=== PATIENT | male | born 1935 | race Caucasian/White ===

== ENCOUNTER 2016-08-21 23:33 | Emergency (ER) | payer MEDICARE ==
[~2016-08-21] VITALS: Ht 175.3 cm; Wt 73.4 kg
[2016-08-22 00:39] LABS: BLOOD UREA NITROGEN 26 mg/dL (7-18)
[2016-08-22 01:34] VITALS: BP 113/64
== END 2016-08-22 01:36 | disposition home or self-care (01) ==
LOC: ED 08-22 01:23
DX: R42 Dizziness and giddiness (principal); I48.91 Unspecified atrial fibrillation; Z79.01 Long term (current) use of anticoagulants
CPT/HCPCS: 36415; 80048; 82040; 85025; 85610; 93005; 99285

== ENCOUNTER 2019-07-27 14:13 | Outpatient (CLI) | payer MEDICARE | END 2019-07-27 23:59 | disposition home or self-care (01) | LOC: CFH 14:13 → RAD 23:59 | PROVIDERS: ATTEND Surgery | DX: C34.11 Malignant neoplasm of upper lobe, right bronchus or lung (principal); J44.9 Chronic obstructive pulmonary disease, unspecified; J18.9 Pneumonia, unspecified organism | CPT/HCPCS: 71046; 88112; 88305 ==

== ENCOUNTER → 2019-11-04 | Outpatient (CLI) | payer MEDICARE | END | disposition home or self-care (01) | LOC: CFH 13:39 | PROVIDERS: ATTEND Internal Medicine | DX: J18.9 Pneumonia, unspecified organism (principal); I25.10 Atherosclerotic heart disease of native coronary artery without angina pectoris | CPT/HCPCS: 71250 ==

== ENCOUNTER 2020-05-27 13:13 | Outpatient (CLI) | payer MEDICARE ==
[2020-05-27] MEDS ORDERED: CHOL10003 PO (14:32)
[2020-05-27] MEDS ORDERED: TAMS-11 PO (14:32)
[2020-05-27] MEDS ORDERED: WARF4TAB65 PO (14:32)
[2020-05-27] MEDS ORDERED: WARF-36 PO (14:32)
[2020-05-27] MEDS ORDERED: GLUC500T11 PO (14:32)
[2020-05-27 14:49] LABS: BASOPHILS % (AUTO) 0 % (0-1); EOSINOPHILS % (AUTO) 2 % (1-7); LYMPHOCYTES % (AUTO) 21 % (22-44); MEAN CORPUSCULAR HEMOGLOBIN 31.8 pg (27.5-34.5); MEAN CORPUSCULAR HGB CONC 33.9 g/dL (33.2-36.2); MEAN PLATELET VOLUME 7.5 fL (7.4-10.4); MONOCYTES % (AUTO) 10 % (2-9); NEUTROPHILS % (AUTO) 67 % (42-75); PLATELET COUNT 203 x10^3/uL (130-400); RED BLOOD COUNT 4.75 x10^6/uL (4.38-5.82); RED CELL DISTRIBUTION WIDTH 13.8 % (9.4-14.8)
[2020-05-27 14:56] LABS: MD NO
[2020-05-27 15:00] LABS: ALANINE AMINOTRANSFERASE 33 U/L (12-78); ALBUMIN 3.8 g/dL (3.4-5.0); ANION GAP 4 mmol/L (5-15); CALCIUM 8.8 mg/dL (8.5-10.1); CHLORIDE 103 mmol/L (98-107); CREATININE 0.75 mg/dL (0.7-1.3)
[2020-05-27 15:02] LABS: ALKALINE PHOSPHATASE 72 U/L (45-117); BILIRUBIN,TOTAL 0.6 mg/dL (0.2-1.0); TOTAL PROTEIN 7.5 g/dL (6.4-8.2)
[2020-05-27 15:12] LABS: INTERNATIONAL NORMALIZED RATIO 1.93 (0.93-1.1); PROTHROMBIN TIME 20.4 Seconds (9.6-11.5)
== END 2020-05-27 23:59 | disposition home or self-care (01) ==
LOC: STAR 13:13
PROVIDERS: ATTEND Surgery
DX: Z01.812 Encounter for preprocedural laboratory examination (principal); Z20.822 Contact with and (suspected) exposure to COVID-19; R94.31 Abnormal electrocardiogram [ECG] [EKG]; I48.91 Unspecified atrial fibrillation; I25.2 Old myocardial infarction
CPT/HCPCS: 36415; 80053; 85025; 85610; 93005; U0003

== ENCOUNTER 2020-06-02 08:26 | Day surgery (SDC) | payer MEDICARE ==
[~2020-06-02] VITALS: Ht 175.3 cm; Wt 72.2 kg
[~2020-06-02 08:26] MED LIST: BUPIVACAINE/PF 0.5% ONE; CHOL10003 PO; EPINEPHRINE 1 MG/ML, 1ML ONE; GLUC500T11 PO; TAMS-11 PO; WARF-36 PO; WARF4TAB65 PO
[2020-06-02 08:59] VITALS: BP 126/76
[2020-06-02] MEDS ORDERED: CHLORHEXIDINE 15 ML UDC ONE (09:06)
[2020-06-02] MEDS ORDERED: FENTANYL PF 100 MCG/2ML ONE (09:25)
[2020-06-02] MEDS ORDERED: CHLORHEXIDINE 15 ML UDC PO ONE (09:30)
[2020-06-02] MEDS ORDERED: LACTATED RINGERS 1,000 ML IV SCH (09:30)
[2020-06-02 09:45] LABS: INTERNATIONAL NORMALIZED RATIO 1.06 (0.93-1.1); PROTHROMBIN TIME 11.3 Seconds (9.6-11.5)
[2020-06-02] MEDS ORDERED: LABETALOL 5MG/ML, 20ML IV PRN (10:00)
[2020-06-02] MEDS ORDERED: EPHEDRINE 50 MG/ML, 1ML IVPush PRN (10:00)
[2020-06-02] MEDS ORDERED: ONDANSETRON 2MG/ML, 2ML IVPush PRN (10:00)
[2020-06-02] MEDS ORDERED: OXYcodone 5 MG/5 ML ORAL.SOL UDC PO PRN (10:00)
[2020-06-02] MEDS ORDERED: PROMETHAZINE 25 MG/ML, 1ML IVPush PRN (10:00)
[2020-06-02] MEDS ORDERED: hydrALAzine 20 MG/ML, 1ML IV PRN (10:00)
[2020-06-02] MEDS ORDERED: ALBUTEROL SULFATE 2.5 MG/3 ML NPPB PRN (10:00)
[2020-06-02] MEDS ORDERED: FENTANYL PF 100 MCG/2ML IV PRN (10:00)
[2020-06-02] MEDS ORDERED: METOPROLOL 1 MG/ML, 5ML IV PRN (10:00)
[2020-06-02] MEDS ORDERED: HALOPERIDOL 5 MG/ML IV PRN (10:00)
[2020-06-02] MEDS ORDERED: ACETAMINOPHEN 325 MG TABLET PO PRN (10:00)
[2020-06-02] MEDS ORDERED: DIPHENHYDRAMINE 50 MG/ML, 1ML IVPush PRN (10:00)
[2020-06-02] MEDS ORDERED: HYDROmorphone 1 MG/ML, 1ML INJ IVPush PRN (10:00)
[2020-06-02] MEDS ORDERED: HYDR-1067 PO ×2 (11:11)
== END 2020-06-02 14:24 | disposition home or self-care (01) ==
LOC: OUT 08:26
PROVIDERS: ATTEND Surgery
DX: K40.30 Unilateral inguinal hernia, with obstruction, without gangrene, not specified as recurrent (principal); I48.91 Unspecified atrial fibrillation; J44.9 Chronic obstructive pulmonary disease, unspecified; Z79.01 Long term (current) use of anticoagulants; Z79.899 Other long term (current) drug therapy; Z87.891 Personal history of nicotine dependence; Z98.890 Other specified postprocedural states; Z82.49 Family history of ischemic heart disease and other diseases of the circulatory system
CPT/HCPCS: 36415; 49507; 85610; 85730; C1781; J0171; J3010; J7120

== ENCOUNTER 2020-06-05 11:07 | Emergency (ER) | payer MEDICARE ==
[~2020-06-05] VITALS: Ht 175.3 cm; Wt 75.5 kg
[~2020-06-05 11:07] MED LIST changes: -BUPIVACAINE/PF 0.5% ONE; -EPINEPHRINE 1 MG/ML, 1ML ONE; +HYDR-2214 PO
--- NOTE | 2020-06-05 11:59 | NUR ---
PT UP TO BR X 2 SINCE BEING BROUGHT BACK TO ROOM 16. PT WITHOUT BM, SMALL AMOUNT OF URINE OUT. PER FRIEND, PT HAS BEEN HAVING TROUBLE URINATING WELL NO BM SINCE SURGERY ON . PT APPEARS UNSTEADY, BSC PLACED IN ROOM. CALL LIGHT WITHIN REACH.
[2020-06-05 12:16] LABS: MICROSCOPIC AUTO
--- NOTE | 2020-06-05 12:26 | NUR ---
REPORT RECEIVED FROM RICHY BARRETT.
--- NOTE | 2020-06-05 12:28 | NUR ---
BLADDER SCAN SHOWED >600ML
[2020-06-05 12:32] LABS: BASOPHILS % (AUTO) 0 % (0-1); EOSINOPHILS % (AUTO) 0 % (1-7); LYMPHOCYTES % (AUTO) 5 % (22-44); MEAN CORPUSCULAR HEMOGLOBIN 31.4 pg (27.5-34.5); MEAN CORPUSCULAR HGB CONC 33.9 g/dL (33.2-36.2); MEAN PLATELET VOLUME 7.6 fL (7.4-10.4); MONOCYTES % (AUTO) 8 % (2-9); NEUTROPHILS % (AUTO) 87 % (42-75); PLATELET COUNT 197 x10^3/uL (130-400); RED BLOOD COUNT 4.48 x10^6/uL (4.38-5.82); RED CELL DISTRIBUTION WIDTH 13.6 % (9.4-14.8)
[2020-06-05 12:35] LABS: MD NO
[2020-06-05 12:44] LABS: INTERNATIONAL NORMALIZED RATIO 1.02 (0.93-1.1); PROTHROMBIN TIME 10.9 Seconds (9.6-11.5)
[2020-06-05 12:46] LABS: ALANINE AMINOTRANSFERASE 23 U/L (12-78); ALBUMIN 3.6 g/dL (3.4-5.0); ANION GAP 8 mmol/L (5-15); CALCIUM 9.1 mg/dL (8.5-10.1); CHLORIDE 100 mmol/L (98-107); CREATININE 0.78 mg/dL (0.7-1.3)
[2020-06-05 12:48] LABS: ALKALINE PHOSPHATASE 62 U/L (45-117); BILIRUBIN,TOTAL 1.2 mg/dL (0.2-1.0); TOTAL PROTEIN 7.7 g/dL (6.4-8.2)
--- NOTE | 2020-06-05 13:07 | NUR ---
elias cath inserted per policy. pt tolerated well.
--- NOTE | 2020-06-05 13:33 | NUR ---
ENEMA DONE AT BEDSIDE AT THIS TIME. PT TOLERATED WELL. BEDSIDE COMODE IN ROOM.
--- NOTE | 2020-06-05 14:05 | NUR ---
PT SITTING ON BEDSIDE COMODE AT THIS TIME.
--- NOTE | 2020-06-05 14:31 | NUR ---
PT BACK TO [facility]. PT'S AOX4. RESPS EVEN AND UNLABORED.
--- NOTE | 2020-06-05 14:47 | NUR ---
edmd at bedside to explain all results at this time.
[2020-06-05 15:28] VITALS: BP 111/65
== END 2020-06-05 15:30 | disposition home or self-care (01) ==
LOC: ED 11:56
DX: K59.00 Constipation, unspecified (principal); R33.9 Retention of urine, unspecified; R10.84 Generalized abdominal pain; I48.91 Unspecified atrial fibrillation
CPT/HCPCS: 36415; 51702; 74021; 80053; 81001; 85025; 85610; 99284